=== PATIENT | female | born 1995 | race Caucasian/White ===

== ENCOUNTER 2025-05-01 15:20 | Outpatient (AMB) | payer OTHER, SELFPAY ==
--- OUTSIDE RECORDS SUMMARY | 2021-05-19 09:50 | XMS_ITS | Continuity of Care Document ---
Author Organization [facility] ol[facility] Address [address] [place] [address] Phone Care Team Providers Care Hematology Supervisor Name Role Phone Ramon GARCIA, Armando Unavailable Unavailable Allergies, Adverse Reactions, Alerts Substance Reaction Status Criticality No Known Allergies Active No Inform ation Medications Medication Instructions Dosage Effective Dates (start - stop) Status Comments Ciprodex 0.3 %-0.1 % ear drops,suspension 7 drops to RIGHT ear twice a day for 7 days - Active Problems Condition Type Effective Dates (start - stop) Clini delvin Status Comments No Known Problems Procedures Procedure Date OV, Estab Pt, Level III Binocular Microscopy Addl Supp, Staff Time Health Janna Due To Inf Dis No Service Provided This Day OV, New Pt, Level IV Removal Impacted Cerumen Req Instrumenta tion Removal Impacted Cerumen Req Instrumenta tion Addl Supp, Staff Time Health Janna Due To Inf Dis Advance Directives Directive Yes / No Effective Date File Name No Information Encounters Encounter Description Practice Location Reason(s) For Visit Diagnoses Date Provider Providers Copied on Encounter OV, Estab Pt, Level III [facility], [address], [place], [place], [id number], tel:[phone] [facility] Follow Up (chief complaint) Swimmer's ear, bilateral Ramon Roberts. [address] [facility] [address], [place], [id number], [place]. tel:[phone] [facility], [address], [place], [place], [id number], tel:[phone] [facility] No Information No Information Referring Provider: Armando Mo, [address] [place] [address], [id number] . tel:[phone] OV, New Pt, Level IV [facility], [address], [place], [place], [id number], tel:[phone] [facility] ear pain (chief complaint) Swimmer's ear, right earImpacted cerumen, left earImpacted cerumen, bilateral Ramon Roberts. [address], [id number], . tel:[phone] Family History Family Member Type Diagnosis Age At Onset Father Problem (finding) Kidney disease Immunizations Vaccine Date Status Comments Influenza unspecified formulation completed Note: patient only r eported on this date, was given elsewhere ; Source: Source Unspecified Payers Payer name Insurance type Covered libertarian ID Authorjoaquinaa kofi(s) [id number] Social History Type Description Quantity Date Captured Comments Alcohol Use Details 1-4 / week socially 2020 Caffeine Use Details Tobacco Use Status No Information Smoking Status Never smoker Non-Smoking Tobacco Use Details : No Details Available : No Details Available Sex Female Vital Signs Date / Time: Height Weight BMI Pulse Rate Blood Pressure Temperature Respiratory Rate Body Surface Area Head Circumference Head Circ. Percentile Wt./Brady. Percentile BMI percentile Pulse Ox Inhaled Ox 1:36 PM 70.00 in 77.111 kg (170.00 lbs) 24.3 9 kg/m eter (2) 97.00 F Chief Complaint And Reason For Visit From encounter dated '05/19/2021 13:50'. Follow Up (chief complaint). Description: .feeling betternow painPREVIOUS HPI: (05/14/2021) EAR PAIN - Associated symptoms include ear pain. Pertinent negatives include congestion (nasal), cough, fever, nausea and vomiting. Additional information: .2 days AD painhearing lossno vertigo or tinnitushas had recurrent itchiness of ears, scratchingused corticosporin last night. Reason For Referral Reason For Referral No Information History Of Present Illness Encounter Date Complaint History Of Prese nt Illness Follow Up .feeling bettern ow painPREVIOUS HPI: (05/14/2021) EAR PAIN - Associated symptoms include ear pain. Pertinent negatives include congestion (nasal), cough, fever, nausea and vomiting. Additional information: .2 days AD painhearing lossno vertigo or tinnitushas had recurrent itchiness of ears, scratchingused corticosporin last night. ear pain Associated sympt oms include ear pain. Pertinent negatives include congestion (nasal), cough, fever, nausea and vomiting. Additional information: .2 days AD painhearing lossno vertigo or tinnitushas had recurrent itchiness of ears, scratchingused corticosporin last night. Functional Status Date Functional Assessmen t No Information Instructions Date Instruction Additional Infor mation ciprodex - 5 days on LEFT ear, 2 more days in RIGHT earavoid water in ear Related to Swimmer's ear, bilateral wick placed ADciprod ex - 7 drops to RIGHT ear twice a day for 7 daysavoid water in earreturn on Wednesday for wick removal Related to Swimmer's ear, right ear Assessments Type Assessment Date assessment Swimmer's ear, bilateral 2020 Mental Status Date Cognitive Assessment Orientation - [place] ed to time, place, person, situation. Patient Care Teams Name Effective Dates (start - stop) Status Members No Information
--- NOTE | 2025-05-01 15:27 | AM.OFFWIN_ITS ---
Intake Vital Signs 05/01/25 15:28 Height 5 ft 6 in Weight 200 lb BMI 32.3 BP 110/72 Blood Pressure Location Lt brachial Position Sitting Pulse 86 Pulse Source Pulse Oximeter Temp 99.5 F Temp Source Oral Pulse Oximetry (%) 99 Oxygen Delivery Method Room Air Intake Visit Reasons: EP-lt ear infection Intake Note: pt presents with left ear pain starting 2 days ago Allergies No Known Allergies Allergy (Verified 05/01/25 15:30) Do you need a note to return to daycare/school/sports/work: No HPI HPI Comments History of Present Illness Details History - The patient is a 30-year-old female pr esenting with left ear pain. - Symptoms began with a headache and pro gressed to ear discomfort, persisting despite the use of Advil and warm compresses. - The patient has a history of similar i nfections, with the last episode requiring a wick for treatment. - She denies sore throat, cough, congest ion, STEEL, dizziness, discharge, CP, or SOB. Physical Exam General: Cooperative, healthy appearing, comfortable, no acute distress and well developed Head: Normal to inspection Ears: External ears normal bilaterally. No tragus or mastoid tenderness noted. No cerumen noted in the canals. Swelling noted in the left ear canal. TM not visualized on the left. Face and sinus: Normal facial exam. No TTP of the sinuses. Neck: Normal visual inspection. Full ROM. No lymphadenopathy noted. Respiratory: Normal respiratory effort and able to speak in complete sentences. Clear to auscultation bilaterally. No w/r/r noted. Cardiac: RRR, no m/r/g noted. Normal S1 and S2 noted. Skin: No rashes or lesions noted Neuro: Patient oriented x3 Patient was informed and verbally consented to the use of an ambient scribe for clinic note documentation during this visit. Review of Systems Const All systems reviewed & are unremarkable except as noted in HPI and below Physical Exam Vital Signs: Last Vital Signs Temp 99.5 F 05/01/25 15:28 Pulse 86 05/01/25 15:28 BP 110/72 05/01/25 15:28 Pulse Ox 99 05/01/25 15:28 Oxygen Delivery Method Room Air 05/01/25 15:28 BMI result Body Mass Index 32.3 Assessment & Plan Assessment & Plan (1) Left ear pain: Code(s): H92.02 - Otalgia, left ear Plan Most likely Acute Otitis Externa vs OM plan - Plan to insert a wick to facilitate medication delivery due to significant swelling. - Consideration of topical antibiotic drops for treatment. - tylenol or motrin as needed for pain or fever - avoid water or q-tips in the ear - return to have the wick removed if it does not fall out on its own - follow up with PCP Medications: New vdjzyhvk-vydynkrgx-CT 3.5-10,000-1 mg/mL-unit/mL-% 4 drps otic (ears) Q8H 10 mL 0RF 7 days Coding Level of Care Code Est Pt Level 3 (99570) Diagnoses Left ear pain H92.02
[2025-05-01 15:28] VITALS: BP 110/72; PULSE 86; TEMP 37.5; O2SAT 99; BMI 32.3
--- OUTSIDE RECORDS SUMMARY | 2025-05-01 18:46 | XMS_ITS | Clinical Summary ---
Author Organization [employer] Address [address] [facility] [place] [address] Care Team Providers Care Book Agent Name Role Phone Keya Sullivanie [employer]TERNATIVE ENERGY ENGINEER Primary Care Provider [phone] Allergies No known active allergies Medications No known medications Immunizations Immunization Administration Dates Next Due Influenza injectable quadrivalent preservative f ree 07/05/2023 Moderna Covid-19 Vaccine 12+ 07/05/2023 Social History Tobacco Use Types Packs/Day Years Used Date Smoking Tobacco: Never Smokeless Tobacco: Never Tobacco Cessation:Counseling Given: Not Answered Alcohol Use Standard Drinks/Week Comments Never 0 (1 standard drink = 0.6 oz pur e alcohol) Alcohol Answer Date Recorded Frequency of Alcohol Consumption Not on file 06/15/2023 Average Number of Drinks Not on file 023 Frequency of Binge Drinking Not on file 05/18 Score 0 06/15/2023 Housing Stability Answer Date Recorded What is your housing situation today? I have tami xiao 06/15/[address] you li ve. Do you have problems with any of the following? None of the above 06/15/2023 Food Insecurity Answer Date Recorded Within the past 12 months, y ou worried that your food would run out before you got money to buy more: Never True 06/15/2023 Within the past 12 months,th e food you bought just didn't last and you didn't have enough money to get more: Never True Transportation Answer Date Recorded In the past 12 months, has l ack of transportation kept you from medical appts, meetings, work or from getting things needed for daily living? No 06/15/2023 Intimate Partner Violence Answer Date R ecorded Within the last year, have y ou been afraid of your partner or ex-partner? 2 06/15/2023 Within the last year, have y ou been humiliated or emotionally abused in other ways by your partner or ex-partner? 2 Within the last year, have y ou been kicked, hit, slapped, or otherwise physically hurt by your partner or ex-partner? 2 06/15/2023 Within the last year, have y ou been raped or forced to have any kind of sexual activity by your partner or ex-partner? 2 06/15/2023 Utilities Answer Date Recorded In the past 12 months, has t he [employer], [employer], oil or water [employer] threatened to shut off services in your home? No 06/15/2023 Depression Answer Date Recorded Patient Health Questionnaire-2 Score 0 06/15/2023 Comments No Sex and Gender Information Value Date Recorded Sex Assigned at Female 02/12/2023 2:58 PM EDT Legal Sex Female 2:52 PM EDT Gender Identity Female 02/12/2023 2:58 PM EDT Sexual Orientation Straight 02/12/2023 2: 58 PM EDT Last Filed Vital Signs Vital Sign Reading Time Taken Comments Blood Pressure 114/80 06/15/2023 9:42 AM EDT Pulse 68 06/15/2023 9:42 AM EDT Temperature 36.2 C (97.1 F) 06/15/2023 9:42 AM EDT Respiratory Rate - - Oxygen Saturation 99% 06/15/2023 9:42 AM EDT Inhaled Oxygen Concentration - - Weight 89.5 kg (197 lb 6.4 oz) 06/15/2023 9:42 A M EDT Height 168.9 cm (5' 6.5 ) 06/15/2023 9:42 AM EDT Body Mass Index 31.38 06/15/2023 9:42 AM EDT Plan of Treatment Health Maintenance Due Date Last Done Comments Disability Screening 1993 Alcohol/Substance Use Screening 2005 Family Planning (PISQ) 02/11/2008 HPV Vaccines (1 - 3-dose series) 02/11/2008 DTaP/Tdap/Td Vaccines (1 - Tdap) 02/11/2012 Hepatitis B Vaccines (1 of 3 - 19+ 3-dose series) 02/11/2012 Pap Smear 2014 Cervical Cancer Screening 2023 HPV/Cotest 2023 Depression Screening 06/15/2024 06/15/2023, 06/15/2023 SDOH Screening 06/15/2024 06/15/2023 Tobacco Screening 06/15/2024 06/15/2023 COVID-19 Vaccine (2 - 2024-2 6 season) 2025 07/05/2023 Influenza Vaccine (#1) 2025 07/05/2023 Zoster Vaccines (1 of 2) 2043 RSV Patients and Patients Aged 60 years or older (1 - 1-dose 75+ series) 02/11/2068 HIV Screening Completed 12/04/2019 Hepatitis C Screening Completed 12/04/2019 HIB Vaccines Aged Out No longer eligi ble based on patient's age to complete this topic Hepatitis A Vaccines Aged Out No long er eligible based on patient's age to complete this topic IPV Vaccines Aged Out No longer eligi ble based on patient's age to complete this topic Meningococcal B Vaccine Aged Out No l onger eligible based on patient's age to complete this topic Meningococcal Vaccine Aged Out No alee rodrigo eligible based on patient's age to complete this topic Pneumococcal Vaccine: Pediatrics (0 to 5 Years) and At-Risk Patients (6 to 49) Years Aged Out No longer eligible b ased on patient's age to complete this topic RSV under 20 months Aged Out No longe r eligible based on patient's age to complete this topic Rotavirus Vaccines Aged Out No longer eligible based on patient's age to complete this topic Procedures Procedure Name Priority Date/Time Associated Diagnosis Comments HM HEPATITIS C ANTIBODY Routine 12/04/2019 HM HIV 1/2 ANTIGEN AND ANTIBODY Routine 12/04/2019 from Last 3 Months or Most Recently Relevant to Health Maintenance Results * HM Hepatitis C Antibody (12/04/2019) Hepatitis C Antibody Nonreactive Blood Historical Provider MD HEALTH MAINTENANCE Final Result * HM HIV 1/2 Antigen and Antibody (12/04/2019) HIV Ag/Ab Nonreactive us Historical Provider HEALTH MAINTENANCE Final Result from Last 3 Months or Most Recently Relevant to Health Maintenance Insurance [employer] Care Teams Book Agent Relationship Specialty Start Date End Date Azeb Sullivan NP [address] [place] [id number] PCP - General Family Medicine 05/19/23
--- OUTSIDE RECORDS SUMMARY | 2025-05-01 18:46 | XMS_ITS | Clinical Summary ---
Author Organization [facility] Address [address] [place], [place] [id number] Phone Care Team Providers Care Delivery Of Shopping News Name Role Phone Pcp, Unknown Primary Care Provider Unavailabl e Allergies No known active allergies Medications No known medications Immunizations Immunization Administration Dates Next Due Rabies Fibroblast Culture 03/01/2020,02/23/2020, 02/19/2020,02/15/2020 Rabies Immune Globulin 02/15/2020 Social History Tobacco Use Types Packs/Day Years Used Date Smoking Tobacco: Never Smokeless Tobacco: Never Alcohol Use Standard Drinks/Week Comments Not Currently 0 (1 standard drink = 0.6 oz pur e alcohol) Education Answer Date Recorded Are you interested in more education? Not on miles e 12/11/2022 Are you concerned about learning? Not on file 12/11/2022 No 12/11/2022 No 12/11/2022 Digital Access Answer Date Recorded No 01/08/2023 No 01/08/2023 No 01/08/2023 Reliable internet access at home? Not on file 01/08/2023 Device with a working camera? Not on file Comments Unknown Sex and Gender Information Value Date Recorded Sex Assigned at Female 03/01/2020 9:32 PM EDT Legal Sex Female 8:57 PM EDT Gender Identity Female 03/01/2020 9:32 PM EDT Sexual Orientation Straight 03/01/2020 9: 32 PM EDT Last Filed Vital Signs Vital Sign Reading Time Taken Comments Blood Pressure 113/78 03/01/2020 9:29 PM EDT Pulse 75 03/01/2020 9:29 PM EDT Temperature 36.2 C (97.2 F) 03/01/2020 9:29 PM EDT Respiratory Rate 20 03/01/2020 9:29 PM EDT Oxygen Saturation 97% 03/01/2020 9:29 PM EDT Inhaled Oxygen Concentration - - Weight 74.8 kg (164 lb 14.5 oz) 03/01/2020 9:29 PM EDT Height 167.6 cm (5' 6 ) 03/01/2020 9:29 PM EDT Body Mass Index 26.62 03/01/2020 9:29 PM EDT Plan of Treatment Upcoming Encounters Date Type Department Care Team (Late st Contact Info) Description 08/13/2025 11:00 AM EST Office Visit [facility] [address] [place] [address] Amy Wang MD [address] [facility], [address] [place] [address] [email or web address] Health Maintenance Due Date Last Done Comments Adult Td,Tdap Booster 1993 DEPRESSION SCREENING 2005 HEPATITIS C SCREENING 2011 HIV ONE-TIME SCREENING (18-6 5 YEARS) 2011 PAP SMEAR 2014 INFLUENZA VACCINE (#1) 2025 08/23/2017 COVID-19 VACCINE (2 - 2024-2 6 season) 2025 11/06/2020 SMOKING STATUS SCREENING (On ce After 26 Yrs) Completed 03/01/2020 HEPATITIS A VACCINES Aged Out No long er eligible based on patient's age to complete this topic HIB VACCINES Aged Out No longer eligi ble based on patient's age to complete this topic MENINGOCOCCAL VACCINES (ACWY) Aged Out No longer eligible based on patient's age to complete this topic MENINGOCOCCAL VACCINES (B) Aged Out N o longer eligible based on patient's age to complete this topic PNEUMOCOCCAL VACCINES (0-49 years) Aged Out No longer eligible based on patient's age to complete this topic Medical Devices Not on file Insurance [employer] DIRECT CONNE[employer] DIRECT [employer] DIRECT [id number] [place] [address] [employer] DIRECT [employer] DIRECT [employer] DIRECT Care Teams Delivery Of Shopping News Relationship Specialty Start Date End Date Pcp, Unknown PCP - General 02/15/20 Additional Source Comments The information contained in this document represents components of the legal health record. It is not the complete legal health record[facility]
== END 2025-05-01 16:13 | disposition home or self-care (01) ==
PROVIDERS: Visit Provider Physician Assistant Medical
DX: H92.02 Otalgia, left ear (principal)

== ENCOUNTER → 2025-05-01 15:20 | Outpatient (BNVA) | payer OTHER, SELFPAY | PROVIDERS: Visit Provider Physician Assistant Medical | DX: H92.02 Otalgia, left ear (principal) | CPT/HCPCS: 99212 ==